=== PATIENT | female | born 1940 | race Caucasian/White ===

== ENCOUNTER 2017-11-07 02:03 | Emergency (ER) | payer MEDICARE, OTHER ==
[2017-11-07 03:06] LABS: #Eosinphils 0.1 thou/uL (0.0-0.7); #Lymphocytes 1.3 thou/uL (1.20-3.40); #Monocytes 0.6 thou/uL (0.11-0.59); #Neutrophils 6.1 thou/uL (1.40-6.50); %Basophils 0.6 % (0.0-1.0); %Eosinophils 1.7 % (0.0-10.0); %Lymphocytes 15.9 % (21.0-51.0); %Monocytes 7.5 % (0.0-10.0); %Neutrophils 74.3 % (42.0-75.0); Mean Corpuscular Hemoglobin 29.3 pg (27.0-31.0); Mean Corpuscular Volume 91.4 fl (81.0-99.0); Mean Platelet Volume 8.2 fL (7.4-10.4); Platelet Count 206 thou/uL (130-400); RBC Distribution Width 12.9 % (11.5-14.5); Red Blood Cell (RBC) Count 5.12 mill/uL (4.20-5.40); White Blood Cell (WBC) Count 8.3 thou/uL (4.8-10.8)
[2017-11-07] MEDS ORDERED: Ketorolac Tromethamine 30 MG/ML VIAL ONE (03:09)
[2017-11-07] MEDS ORDERED: diphenhydrAMINE 50 MG/ML VIAL ONE (03:22)
[2017-11-07] MEDS ORDERED: methylPREDNISolone Sod Succ/PF 125 MG/2 ML VIAL ONE (03:22)
[2017-11-07] MEDS ORDERED: Famotidine/PF 20 mg/2ml Vial ONE (03:22)
[2017-11-07 03:28] LABS: ALT (SGPT) 12 U/L (8-55); AST (SGOT) 18 U/L (5-34); Albumin 4.3 g/dL (3.4-4.8); Alkaline Phosphatase 79 U/L (40-150); Anion Gap 13 mmol/L (10-20); BUN (Urea Nitrogen) 11 mg/dL (9.8-20.1); Bilirubin, Total 0.5 mg/dL (0.2-1.2); Calc. Creatinine Clearance 0 mL/min (70-130); Calcium 9.9 mg/dL (7.8-10.44); Carbon Dioxide 26 mmol/L (23-31); Chloride 102 mmol/L (98-107); Estimated GFR-MDRD 81; Globulin 3.3 g/dL (2.4-3.5); Glucose 183 mg/dL (83-110); Lipase 7 U/L (8-78); Potassium 3.9 mmol/L (3.5-5.1); Protein, Total 7.6 g/dL (6.0-8.3); Sodium 137 mmol/L (136-145)
[2017-11-07 03:46] LABS: Bilirubin Negative (Negative); Blood, Urine Negative (Negative); Clarity CLEAR (Clear); Glucose, Urine (Dipstick) Negative (Negative); Leukocyte Trace (Negative); Nitrite Negative (Negative); Protein, Urine (Dipstick) Negative (Neg-Trace); Specific Gravity, Urine 1.016 (1.002-1.036)
[2017-11-07 03:47] LABS: Bacteria/HPF None Seen HPF (None Seen); Hyaline Casts/LPF 0-3 HYALINE CAST LPF (0-3 Hyaline); RBC/HPF 0-3 HPF (0-3); Squamous Epithelial None Seen HPF (0-3); WBC/HPF 0-3 HPF (0-3)
--- NOTE | 2017-11-07 08:23 | CT ---
PRELIMINARY REPORT/[facility]/EMERGENCY AFTER HOURS PROCEDURE: EXAM: CT Abdomen and Pelvis Without and With Intravenous Contrast EXAM DATE/TIME: Exam ordered 11/07/2017 4:11 AM CLINICAL HISTORY: 77 years old, female; Pain; Abdominal pain; Patient HX: Er6; 77 yo f presents to ed C/O rlq abdominal pain that started this afternoon at 1300 while pt was sitting on the couch. Pt reports bloating and feeling nauseous. Denies vomiting, denies fever or chills. Pt reports dark colored urine and frequenc y. Pt states she is having normal bms. Pt has h/o HTN, dm, and high cholesterol. Pt takes daily baby aspirin. Pt has had hysterectomy 25 years ago and cholecystectomy TECHNIQUE: Axial computed tomography images of the abdomen and pelvis without and with intravenous contrast. Coronal reformatted images were created and reviewed. COMPARISON: No relevant prior studies available. FINDINGS: Lower thorax: There is subpleural atelectasis of the dependent portions of the lungs. A small hiatal hernia is present. ABDOMEN: Liver: The liver demonstrates punctate calcifications, consistent with remote granulomatous organism exposure. Gallbladder and bile ducts: The gallbladder is probably surgically absent. No ductal dilation. Pancreas: The pancreas appears normal. No ductal dilation. Spleen: The spleen is normal. Adrenals: The right adrenal gland is normal. There is a focal hypodense mass in the left adrenal glan d, consistent in appearance and density with a benign adrenal adenoma. Kidneys and ureters: The kidneys appear normal. No obstructing stones. No hydronephrosis. Stomach and bowel: Moderate diverticulosis is present in the sigmoid and descending colon. Colonic wall thickening may be present, incompletely evaluated without contrast. Acute diverticulitis is possible and clinical correlation is advised. The stomach is normal. The duodenum is unremarkable . No obstruction. Appendix: No findings to suggest acute appendicitis. PELVIS: Bladder: Normal. No mass. No stones. Reproductive: The uterus is not visualized, and may be atrophic or surgically absent. ABDOMEN and PELVIS: Intraperitoneal space: Normal. No free air. No significant fluid collection. Bones/joints: No acute fracture. No dislocation. Soft tissues: Normal. Vasculature: The vasculature demonstrates diffuse moderate atherosclerotic calcification. No abdomina l aortic aneurysm. Lymph nodes: Normal. No enlarged lymph nodes. IMPRESSION: Moderate diverticulosis is present in the sigmoid and descending colon. Colonic wall thickening may b e present, incompletely evaluated without contrast. Acute diverticulitis is possible and clinical cor relation is advised. Thank you for allowing us to participate in the care of your patient. Dictated and Authenticated by: Vimal Katz MD 11/07/2017 4:43 AM Central Time ([place] & [place]) FINAL REPORT EMERGENT AFTER HOURS CT ABDOMEN WITH AND WITHOUT IV CONTRAST EMERGENT AFTER HOURS CT PELVIS WITH AND WITHOUT IV CONTRAST: Date: 11-07-17 History: Right lower quadrant abdominal pain with bloating and nausea. Dark colored urine and increas ed urinary frequency. IMPRESSION: 1. Extensive atherosclerotic vascular calcifications involving the abdominal aorta and iliac arteries . 2. Colonic diverticulosis. 3. Subcentimeter too small to characterize hypodense lesion midportion right kidney. No enhancing adryan al mass is seen. No renal or ureteral calculi are seen bilaterally. There is no hydronephrosis. 4. Approximately 1.2 cm left adrenal adenoma. 5. Small hiatal hernia. 6. No CT evidence for appendicitis. 7. Hysterectomy and cholecystectomy. 8. Findings are in agreement with preliminary report by [facility]. [facility] does question the possibility of t hickening of the colon. There is mild thickening involving a portion of the ascending colon, but this may be related to incomplete distention as opposed to actual colonic wall thickening. There is no pe ricolonic inflammatory changes visualized. If symptoms persist, follow up imaging can be performed. Code QA POS: DONNIE
[2017-11-07] MEDS ORDERED: ISOVUE-370 76%-LOCM 1 ML ONE (12:43)
== END 2017-11-07 05:00 | disposition home or self-care (01) ==
LOC: ERS 02:03
DX: K52.9 Noninfective gastroenteritis and colitis, unspecified (principal); E11.9 Type 2 diabetes mellitus without complications; I10 Essential (primary) hypertension; Z79.82 Long term (current) use of aspirin; Z79.899 Other long term (current) drug therapy
CPT/HCPCS: 36415; 74178; 80053; 81003; 81015; 83690; 85025; 96374; 96375; J1200; J1885; J2930; S0028

== ENCOUNTER 2023-01-26 08:11 | Outpatient (CLI) | payer MEDICARE | END 2023-01-26 08:12 | disposition home or self-care (01) | LOC: TBSIIMAG 08:11 | PROVIDERS: ATTEND Orthopaedic Surgery | DX: M47.816 Spondylosis without myelopathy or radiculopathy, lumbar region (principal); M48.061 Spinal stenosis, lumbar region without neurogenic claudication | CPT/HCPCS: 72148 ==